=== PATIENT | female | born 1970 ===

== ENCOUNTER → 2016-12-02 | Outpatient (REF) ==
--- NOTE | 2016-12-02 13:58 | REP ---
Cervical spine series: Three views. Limited study. History: Degenerative disc disease. No comparison views. Findings: Open mouth odontoid, AP, and lateral views of the cervical spine show some straightening of the normal cervical lordosis. There is degenerative disc narrowing and anterior osteophyte formation at the C4-5, C6-7 and to a lesser extent C5-6 disc levels. Some posterior osteophytic ridging is seen at these three levels. No malalignment is seen. Vertebral body heights are preserved. Prevertebral soft tissues are unremarkable. AP and open mouth odontoid views are normal. Impression: Straightening. Mild degenerative disc disease C4-5, C6-7, and C5-6 to some degree. Signed by Guy Law MD 12/02/2016 05:00 P
== END ==
LOC: M SMT 09:28
PROVIDERS: ATTEND Internal Medicine
DX: Z02.1 Encounter for pre-employment examination (principal)